=== PATIENT | male | born 1975 | race Caucasian/White ===

== ENCOUNTER → 2017-06-10 | Outpatient (CLI) | payer OTHER ==
[~2017-06-10] VITALS: Ht 167.6 cm; Wt 87.5 kg
[~2017-06-10] MED LIST: ALLOPURINOL 30300 M2 PO; COLCHICINE0.6 MG PO; FISH OIL 1,001000 M2 PO; LAMICTAL100 MG PO; MOBIC7.5 MG PO; MULTIVITAMINS PO; NORCO 10-325 T1 EACH PO; PRINIVIL40 MG PO; TRAZODONE HCL100 MG PO; VENTOLIN HFA 1818 GM INH; VITAMIN D1000 UNI1 PO
--- NOTE | ~2017-06-10 | HPC ---
[facility] [address] [place] [address] PAIN MANAGEMENT CONSULTATION Name: ALICIA LUNA Room #: REG Laury Padilla#: [id number] Admission: 06/10/17 Attend Phys: Fahad Araujo DO Discharge: Date of : 79 Report #: [id number] THIS REPORT FOR: //name// CC: Ever Araujo The patient is a very pleasant 42-year-old gentleman, seen in consultation at the request of Dr. Martínez for assistance with management of chronic pain concerns. 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 He has suffered with chronic pain in his knees and ankles secondary to hyperuricemia for many years. He has been relatively stable using allopurinol daily, colchicine, Mobic, and occasional hydrocodone for "flares." Last significant flare was his left knee about 4-6 months ago. He has minor flares about once a month. He notes pain is primarily knees and ankles, they ache after exercising, walking, sitting, and even standing does exacerbate pain to some small degree. He notes pain is better with ice, medication, and elevation. Describes continuous, steady, constant, rhythmic pain with flare ups, shooting, aching, pounding, sharp, stabbing pain periodically. Rates pain anywhere from 1-10 on a VAS. REVIEW OF SYSTEMS: A complete review of systems was attached to chart and was gone over with the patient. He is , he does not smoke. He has had some issues with ethanol habituation. He is currently sober and he attends AA meetings regularly. History of asthma for which he uses p.r.n. albuterol, hypertension, treated with lisinopril; bipolar disorder, stable on Lamictal. Chronic hyperuricemia/gout. He has had nasal septal reconstruction 1991, right carpal tunnel release in November 2016. He is planning another surgery probably in August, hand surgery, I believe right again. The patient has continued to work despite pain, missed perhaps 1 or 2 days with acute exacerbation. Pain impact score is essentially zero. PHYSICAL EXAMINATION: Reveals a pleasant 66-inch, 193-pound gentleman, BMI is modestly elevated at 31.2 kg/m2. Blood pressure is 136/89, pulse 82, and respirations are 16. Cranial nerves 2-12 are grossly intact. Pupils are equal, reactive to light and accommodation. Extraocular muscles are intact. There is no nystagmus or lateral gaze deviation. Thyroid is unremarkable. Cervical range of motion is full. Upper extremity strength is preserved. Heart is regular rhythmical without murmur. Lungs are clear to auscultation. Abdomen shows a modestly endomorphic build. Rises from chair easily. Gait is tandem. Lumbar flexion is good to about 80 degrees. Inspection of the knees shows no ballotable edema. Anterior, posterior cruciate as well as the medial and lateral collateral ligaments are intact. Full range of motion in the ankle. There is no swelling at this time. [address] [address] PAIN MANAGEMENT CONSULTATION Name: PRASHANTMADHAVALICIA HELTON Room #: SIMÓN Padilla#: [id number] Admission: 06/10/17 Attend Phys: Fahad Araujo DO Discharge: Date of : 79 Report #: [id number] I did review records from Dr. Martínez's office. He has been using hydrocodone 40-45 tablets appropriately with prescriptions generated every "couple of months." Today, I did discuss opiate consent to treat contract with the patient today. I will be happy to manage opiates on an as needed basis. The patient understands need to use opiate analgesics on a nondaily basis. Only with acute flares. I talked about responsibility to keep medications safeguarded, use 1 prescribing physician and one pharmacy. The patient did mention today that he is having surgery in August with Dr. Jacobs who usually will use a short course of hydrocodone postoperatively. I suggested that if he has had a recent fill of hydrocodone from me to use that, if, however, he is out of hydrocodone from me, I will enable him to get a prescription from Dr. Jacobs; however, I would like to see him when he gets near the end of today's prescription (for 45 tablets). We will try and get a better handle on his average usage. Again, as long as he uses on a nondaily basis, I beleive that is is appropriate to have available a small amount of pain tablets for acute exacerbations of hyperuricemia/gout exacerbation. Lastly, we will to random buccal drug swabs, which should be positive for hydrocodone as the sole opiate. Discharged in good and stable condition today, did generate a prescription for hydrocodone 10/325, dispense 45 tablets with directions to use 1 q.4 hours as needed for exacerbation of significant pain. Otherwise, we will see the patient simply on as needed basis. Again, consent to opiate treatment contract was signed by both the patient and myself. Thank you for allowing me to participate in the patient's care. I will keep you abreast of his progress. <ELECTRONICALLY SIGNED> By: Fahad Araujo DO 06/13/17 0755 [id number] Fahad Araujo DO /nt
[2017-06-10 08:28] VITALS: BP 136/89
== END ==
LOC: PAIN 08:16
DX: M25.561 Pain in right knee (principal); M25.562 Pain in left knee; G89.29 Other chronic pain

== ENCOUNTER → 2017-08-29 | Outpatient (CLI) | payer OTHER ==
[~2017-08-29] VITALS: Ht 167.6 cm; Wt 87.1 kg
[~2017-08-29] MED LIST changes: +ANTABUSE250 M1 PO; +FLEXERIL PO; +NALTREXONE HCL50 MG PO
--- NOTE | ~2017-08-29 | HPC ---
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 He has struggled with his gout for years. He takes allopurinol daily, colchicine and Mobic when he has his gouty flares. He takes hydrocodone for rare flares. I saw him on 06/10/2017 and prescribed hydrocodone 10/325, dispensed 45 tablets to be used for acute exacerbation of symptoms. He returns to pain clinic today, 45 tablets lasted 11 weeks. Presents to pain clinic today for medication refill. Notes pain in bilateral feet and ankles has been present for multiple years, fairly nominal at present 0.5. He did have several flares in the preceding 11 weeks. PHYSICAL EXAMINATION: Shows 42-year-old gentleman. BMI is modestly elevated at 31 kilograms per meter squared. Blood pressure 128/83, pulse 96, respirations 14. Alert and oriented to person, place and time, judged to be a reasonable historian. Rises from chair easily. Gait is tandem. Long discussion with the patient today about therapeutic options. He has admitted that he has some issues with alcohol abuse and has starting counseling. He sees Dr. Yash Muro. He has been started on disulfiram 250 mg daily and naltrexone 50 mg daily. The patient notes that when he started the naltrexone he feels that the hydrocodone when he had his last gouty flare did not work quite as well. We discussed reasons for using disulfiram and naltrexone. Naltrexone may help some with alcohol "craving." The Antabuse is simply there as a "threat" knowing that if the patient drinks alcohol he will have a significant physical symptoms of nausea, vomiting. Nonetheless, I suggested that if he does have a gouty flare, he may consider holding the naltrexone for 2 or 3 days. Its half life is about 14 hours, so in 24 hours about 2/3 of the drug should be gone. He may have better efficacy on days 2 and 3, typically his gouty flares only last significantly 2 or 3 days. As a trail off, I suggest he go back to the naltrexone. I did point out that multiple studies have suggested that low dose naltrexone may actually have some analgesic ability, which may help with his residual gout pain. ASSESSMENT: History of gout, chronic pain syndrome requiring high risk complex [address] [address] PAIN MANAGEMENT CONSULTATION Name: FRANCISCO JAVIERANTONIETACBALEXX SalazarALICIAEDDIE THORNTON Room #: REG CLLaury Padilla#: [id number] Admission: 08/29/17 Attend Phys: Fahad Araujo DO Discharge: Date of : 79 Report #: [id number] medication management. RECOMMENDATIONS: The patient was seen for a little bit longer visit today, approximately 25 minutes spent in counseling the patient, reviewing therapeutic issues and significant interval history including Antabuse and naltrexone use. Discharged in good and stable condition. I have again renewed hydrocodone 10/ up to 45 tablets. Follow up in anywhere from 8-12 weeks. We will get a buccal swab at that time. It should be positive for hydrocodone as the sole opiate, there should be no other central acting agents. Discharged in good and stable condition. By: [id number] Fahad Araujo, /nt
[2017-08-29 13:20] VITALS: BP 128/83
== END ==
LOC: PAIN 06:57
DX: G89.4 Chronic pain syndrome (principal); M25.571 Pain in right ankle and joints of right foot; Z79.899 Other long term (current) drug therapy; Z87.39 Personal history of other diseases of the musculoskeletal system and connective tissue

== ENCOUNTER → 2017-12-09 | Outpatient (CLI) | payer OTHER ==
[~2017-12-09] VITALS: Ht 167.6 cm; Wt 85.5 kg
[~2017-12-09] MED LIST changes: +NORCO 10-325 T1 EAC1 PO
--- NOTE | ~2017-12-09 | HPC ---
[facility] [place] [address] PAIN MANAGEMENT CONSULTATION Name: ALICIA LUNA Room #: REG CL M.R.#: [id number] Admission: 12/09/17 Attend Phys: Fahad Araujo DO Discharge: Date of : 79 Report #: [id number] THIS REPORT FOR: //name// CC: Ever Araujo DATE OF SERVICE: 12/09/2017 The patient is a pleasant 42-year-old gentleman being treated for chronic pain syndrome, hyperuricemia (gout) requiring complex medication management. Last seen in pain clinic on 08/29/2017. We continued the patient on hydrocodone 10/325 one tablet q.4-6h. as needed for acute bouts of pain, dispense 45 tablets. This has lasted him 3+ months. Returns to pain clinic today. He is doing well. He follows with Dr. Yash Muro. He is on disulfiram and naltrexone for history of opiate habituation. He has been sober for past year. He is alert and oriented. He is losing a little bit of weight. He is increasing physical activity, started to [employer]. Does note continuing pain in his knees and feet, which are chronic, but this is different than his acute exacerbations of hyperuricemic pain. Today, he notes his pain is 2 on VAS. PHYSICAL EXAMINATION: Shows pleasant 42-year-old gentleman, BMI is 30.4 kilograms per meter squared. Blood pressure is 158/85, pulse 73, respirations 20, room air oxygen saturation 94%. He has not fallen in the last 3 months. Medication list was reconciled. His functional assessment tool score is low 18/70. He does not use tobacco products. He is alert, oriented to person, place, time. He rises easily. Gait is tandem. Again, weight is down. BMI is 30.4 kilograms per meter squared. He had been 31.2 kilograms per meter squared on initial visit. ASSESSMENT: Hyperuricemia, gout, chronic pain syndrome requiring complex medication management. RECOMMENDATIONS: Long discussion with the patient today. He is doing very well with his sobriety. I had suggested he stop naltrexone on the days that he takes hydrocodone. He tried this and noted some nominal increase in efficacy. We talked about the fact he has been on hydrocodone for some time. It has been quite helpful for him. If at some point, this loses efficacy, we will rotate to Percocet 7.5/325 roughly equally analgesic agent. We will not entertain a chronic opiate daily use. The patient discharged in good and stable condition. I gave him [address] [address] PAIN MANAGEMENT CONSULTATION Name: ALICIA LUNA HILLARY Room #: REG QI Kuhn.Betsey.#: [id number] Admission: 12/09/17 Attend Phys: Fahad Araujo DO Discharge: Date of : 79 Report #: [id number] for hydrocodone 10/325, limit 45 tablets, 1 to release today, 1 to release in 6 weeks. I will see him back in 3-6 months. <ELECTRONICALLY SIGNED> By: Fahad Araujo DO 12/15/17 0938 1535 1944 Fahad Araujo DO /nt
[2017-12-09 14:14] VITALS: BP 158/85
== END ==
LOC: PAIN 07:15
DX: G89.29 Other chronic pain (principal); E79.0 Hyperuricemia without signs of inflammatory arthritis and tophaceous disease; Z79.899 Other long term (current) drug therapy

== ENCOUNTER → 2020-08-26 | Outpatient (CLI) | payer OTHER | LOC: LAB 10:13 | PROVIDERS: ATTEND Internal Medicine | DX: Z20.828 Contact with and (suspected) exposure to other viral communicable diseases (principal) ==

== ENCOUNTER → 2020-11-14 | Outpatient (CLI) | payer OTHER ==
[2020-11-14 15:19] LABS: ABSOLUTE NEUTROPHILS 4.2 thou/uL (1.4-8.2); BASOPHILS 0.6 % (0.0-2.0); EOSINOPHILS 1.6 % (0.0-3.0); HEMOGLOBIN 16.8 gm/dL (14.0-18.0); LYMPHOCYTES 27.9 % (24.0-44.0); MCH 30.1 pg (26.0-34.0); MCHC 33.7 g/dL (28.0-37.0); MCV 89.4 fL (80.0-100.0); MONOCYTES 9.1 % (1.0-8.0); PLATELET COUNT 249 thou/uL (150-400); POLYS 60.8 % (36.0-66.0); RBC 5.59 mil/uL (4.50-6.00); RDW 14.6 % (10.5-14.5); WBC 6.9 thou/uL (4.0-11.0)
[2020-11-14 15:22] LABS: URINE BILIRUBIN NEGATIVE (Negative); URINE BLOOD NEGATIVE (Negative); URINE CLARITY CLEAR; URINE COLOR YELLOW; URINE GLUCOSE-RANDOM* NEGATIVE (Negative); URINE KETONES NEGATIVE (Negative); URINE LEUKOCYTES-REFLEX NEGATIVE (Negative); URINE NITRITE-REFLEX NEGATIVE (Negative); URINE PROTEIN (DIPSTICK) NEGATIVE (Negative); URINE UROBILINOGEN 0.2 E.U./dl (0.2-1.0)
[2020-11-14 15:38] LABS: ALBUMIN 4.8 g/dL (3.4-5.0); ANION GAP 5 mmol/L (7-16); BUN 20 mg/dL (7-18); CALCIUM 9.2 mg/dL (8.5-10.1); CHLORIDE 101 mmol/L (98-107); CHOLESTEROL 183 mg/dL (<200); CO2 33 mmol/L (21-32); CREATININE 1.1 mg/dL (0.7-1.3); GLUCOSE 99 mg/dL (74-106); HDL CHOLESTEROL 56 mg/dL (>40); LDL CHOLESTEROL 98 mg/dL (<100); POTASSIUM 4.4 mmol/L (3.5-5.1); SGOT 23 U/L (15-37); SGPT 44 U/L (30-65); SODIUM 139 mmol/L (136-145); TC:HDL 3.3 Ratio (Not establshd); TOTAL BILIRUBIN 0.7 mg/dL (0.2-1.0); TRIGLYCERIDE 145 mg/dL (<150); VLDL 29 mg/dL (<40)
== END ==
LOC: LAB 14:45
PROVIDERS: ATTEND Internal Medicine
DX: I10 Essential (primary) hypertension (principal)

== ENCOUNTER 2020-12-11 09:13 | Emergency (ER) | payer OTHER ==
[~2020-12-11] VITALS: Ht 167.6 cm; Wt 75.8 kg
[~2020-12-11 09:13] MED LIST changes: -MULTIVITAMINS PO; +ONE-DAILY MULT1 EAC1 PO
[2020-12-11 09:34] LABS: ABSOLUTE NEUTROPHILS 3.6 thou/uL (1.4-8.2); BASOPHILS 0.5 % (0.0-2.0); EOSINOPHILS 0.7 % (0.0-3.0); HEMATOCRIT 50.9 % (42.0-52.0); LYMPHOCYTES 27.9 % (24.0-44.0); MCHC 33.4 g/dL (28.0-37.0); MCV 89.8 fL (80.0-100.0); MONOCYTES 7.6 % (1.0-8.0); PLATELET COUNT 231 thou/uL (150-400); POLYS 63.3 % (36.0-66.0); RBC 5.67 mil/uL (4.50-6.00); RDW 14.3 % (10.5-14.5); WBC 5.7 thou/uL (4.0-11.0)
[2020-12-11 09:34] LABS: URINE BILIRUBIN NEGATIVE (Negative); URINE BLOOD NEGATIVE (Negative); URINE CLARITY CLEAR; URINE COLOR YELLOW; URINE GLUCOSE-RANDOM* NEGATIVE (Negative); URINE KETONES NEGATIVE (Negative); URINE LEUKOCYTES-REFLEX NEGATIVE (Negative); URINE NITRITE-REFLEX NEGATIVE (Negative); URINE PROTEIN (DIPSTICK) NEGATIVE (Negative); URINE SPECIFIC GRAVITY 1.015 (1.005-1.035); URINE UROBILINOGEN 0.2 E.U./dl (0.2-1.0)
[2020-12-11] MEDS ORDERED: SEROQUEL200 MG PO (09:39)
[2020-12-11] MEDS ORDERED: CLONAZEPAM 0.50.5 M1 PO (09:39)
[2020-12-11] MEDS ORDERED: QVAR REDIHALE10.6 G1 (09:40)
[2020-12-11 09:42] LABS: CALCIUM 9.1 mg/dL (8.5-10.1); POTASSIUM 4.7 mmol/L (3.5-5.1)
[2020-12-11 11:19] LABS: TOTAL BILIRUBIN 0.6 mg/dL (0.2-1.0)
[2020-12-11 12:32] VITALS: BP 111/68
[2020-12-15] MEDS ORDERED: DEPO-TESTO100 MG/1 M IM (15:26)
[2020-12-15] MEDS ORDERED: SEROQUEL 100 M100 M1 PO (15:27)
[2020-12-15] MEDS ORDERED: CLONAZEPAM 1 MG1 M1 PO (15:27)
[2020-12-15] MEDS ORDERED: HYDROCODON-ACE1 EAC7 PO (15:29)
[2020-12-15] MEDS ORDERED: VITAMIN D350 MCG PO (15:29)
[2020-12-15] MEDS ORDERED: QVAR REDIHALE10.6 G1 INH (15:30)
[2020-12-15] MEDS ORDERED: PROAIR HFA8.5 GM INH (15:31)
[2020-12-15] MEDS ORDERED: VITAMIN D3100 MCG PO (15:51)
== END 2020-12-11 12:33 | disposition home or self-care (01) ==
LOC: ER 09:13
PROVIDERS: Emergency Medicine
DX: R10.9 Unspecified abdominal pain (principal); Z79.899 Other long term (current) drug therapy; Z88.8 Allergy status to other drugs, medicaments and biological substances

== ENCOUNTER 2020-12-14 16:13 | Emergency (ER) | payer OTHER ==
[~2020-12-14] VITALS: Ht 170.2 cm; Wt 75.8 kg
[~2020-12-14 16:13] MED LIST changes: +CLONAZEPAM 0.50.5 M1 PO; +QVAR REDIHALE10.6 G1; +SEROQUEL200 MG PO
[2020-12-14 16:31] LABS: URINE BILIRUBIN NEGATIVE (Negative); URINE BLOOD NEGATIVE (Negative); URINE CLARITY CLEAR; URINE COLOR YELLOW; URINE GLUCOSE-RANDOM* NEGATIVE (Negative); URINE KETONES NEGATIVE (Negative); URINE LEUKOCYTES-REFLEX NEGATIVE (Negative); URINE NITRITE-REFLEX NEGATIVE (Negative); URINE PROTEIN (DIPSTICK) NEGATIVE (Negative); URINE SPECIFIC GRAVITY 1.015 (1.005-1.035); URINE UROBILINOGEN 0.2 E.U./dl (0.2-1.0)
[2020-12-14 17:31] LABS: HEMATOCRIT 48.5 % (42.0-52.0); MCH 29.7 pg (26.0-34.0); RBC 5.39 mil/uL (4.50-6.00); RDW 14.2 % (10.5-14.5); WBC 7.5 thou/uL (4.0-11.0)
[2020-12-14 17:36] LABS: CREATININE 1.2 mg/dL (0.7-1.3)
[2020-12-14] MEDS ORDERED: LEVSIN0.125 MG PO (19:41)
[2020-12-14 19:46] VITALS: BP 119/65
[2020-12-15] MEDS ORDERED: DEPO-TESTO100 MG/1 M IM (15:26)
[2020-12-15] MEDS ORDERED: CLONAZEPAM 1 MG1 M1 PO (15:27)
[2020-12-15] MEDS ORDERED: SEROQUEL 100 M100 M1 PO (15:27)
[2020-12-15] MEDS ORDERED: VITAMIN D350 MCG PO (15:29)
[2020-12-15] MEDS ORDERED: HYDROCODON-ACE1 EAC7 PO (15:29)
[2020-12-15] MEDS ORDERED: QVAR REDIHALE10.6 G1 INH (15:30)
[2020-12-15] MEDS ORDERED: PROAIR HFA8.5 GM INH (15:31)
[2020-12-15] MEDS ORDERED: VITAMIN D3100 MCG PO (15:51)
== END 2020-12-14 19:49 | disposition home or self-care (01) ==
LOC: ER 16:13
PROVIDERS: Nurse Practitioner Family
DX: K59.00 Constipation, unspecified (principal); K43.9 Ventral hernia without obstruction or gangrene; Z79.899 Other long term (current) drug therapy; Z88.8 Allergy status to other drugs, medicaments and biological substances

== ENCOUNTER → 2020-12-16 | Outpatient (CLI) | payer OTHER ==
[~2020-12-16] MED LIST changes: +CLONAZEPAM 1 MG1 M1 PO; +DEPO-TESTO100 MG/1 M IM; +HYDROCODON-ACE1 EAC7 PO; +LEVSIN0.125 MG PO; +PROAIR HFA8.5 GM INH; +QVAR REDIHALE10.6 G1 INH; +SEROQUEL 100 M100 M1 PO; +VITAMIN D3100 MCG PO; +VITAMIN D350 MCG PO
== END ==
LOC: LAB 10:55
PROVIDERS: ATTEND Specialist
DX: Z01.812 Encounter for preprocedural laboratory examination (principal); Z20.822 Contact with and (suspected) exposure to COVID-19

== ENCOUNTER → 2020-12-19 | Outpatient (CLI) | payer OTHER ==
[~2020-12-19] VITALS: Ht 167.6 cm; Wt 75.8 kg
--- NOTE | 2020-12-19 21:19 | P ---
[facility] [place] [address] PROCEDURE REPORT Name: TUESDAYALICIA LUNA [facility] #: SIMÓN Padilla#: [id number] Admission: 12/19/20 Attend Phys: Santhosh Denton Discharge: Date of : 79 Report #: [id number] THIS REPORT FOR: cc: Robi Harris MD, Stany A. MD McElhinney, Christian C. MD ~ DATE OF SERVICE: 12/19/2020 PROCEDURE PERFORMED: Colonoscopy. HISTORY OF PRESENT ILLNESS: The patient is a 45-year-old male with recent history of abdominal pain, who underwent a CT scan of his abdomen and pelvis on 12/11/2020, which showed a possible rectal mass described as 2.6 cm eccentric soft tissue mass along the right side of the superior rectum, worrisome for possible malignancy. Recommend colonoscopy. The patient then had a right lower abdominal bulge several days later, was rescanned through the Emergency Room on 12/14/2020 this time with contrast that did not show rectal mass and no other abnormalities were noted including herniation. He continues to have pain. He has never had a colonoscopy before. He does report small amount of bright red blood per rectum at times. No family history of colon cancer or inflammatory bowel disease. His weight has been stable. Plan is for colonoscopy. DESCRIPTION OF PROCEDURE: The risks and benefits of the procedure were explained to the patient, those risks including but not limited to bleeding, perforation and the risk of sedation. He understood these risks and gave informed consent. Sedation was given using propofol per anesthesia. Next, a digital rectal exam was initially performed, which was normal. Next, using a standard Olympus colonoscope, the scope was placed in the patient's anus and advanced under direct vision to the cecum. The overall prep was good in most areas. Several areas washings and aspirations were performed. Again, I was able to view most areas quite well. The cecum and ileocecal valve were normal in appearance. Terminal ileum was intubated and normal in appearance. The ascending, transverse, descending, and sigmoid colon were normal. Close examination of the rectum showed no evidence of mass lesions, no polyps, no abnormalities were noted. On retroflexion, small nonbleeding internal hemorrhoids were noted. The scope was then withdrawn and the procedure terminated. The patient tolerated the procedure well. IMPRESSION: 1. Small internal hemorrhoids. 2. Otherwise, normal colonoscopy. RECOMMENDATIONS: Etiology of abdominal pain is unclear. I reviewed the most recent CT scan with Dr. Avitia. No evidence of herniation is noted on CT or other abnormalities. We will start Levsin on a p.r.n. basis. The patient does have a [address] [address] PROCEDURE REPORT Name: TUESDAYALICIA LUNA [facility] #: REG QI Padilla#: [id number] Admission: 12/19/20 Attend Phys: Santhosh Denton Discharge: Date of : 79 Report #: [id number] history of constipation. I would recommend MiraLax on a daily basis as well. We would repeat colonoscopy in 5 years due to a few areas in which the prep was only fair. Thank you for allowing me to participate in his care. <ELECTRONICALLY SIGNED> By: Santhosh Garrett MD 12/19/20 2119 1054 1733 Santhosh Garrett MD /nt
== END | disposition home or self-care (01) ==
LOC: GI
PROVIDERS: ATTEND Specialist
DX: R10.9 Unspecified abdominal pain (principal); K62.5 Hemorrhage of anus and rectum; K64.8 Other hemorrhoids; I10 Essential (primary) hypertension; J45.909 Unspecified asthma, uncomplicated; F31.9 Bipolar disorder, unspecified; Z98.890 Other specified postprocedural states; Z79.899 Other long term (current) drug therapy; Z87.442 Personal history of urinary calculi; Z88.8 Allergy status to other drugs, medicaments and biological substances
CPT/HCPCS: 62110; 62900

== ENCOUNTER → 2021-01-09 | Outpatient (CLI) | payer OTHER | LOC: MRI 09:57 | PROVIDERS: ATTEND Surgery | DX: M54.9 Dorsalgia, unspecified (principal) ==

== ENCOUNTER → 2021-02-17 | Outpatient (CLI) | payer OTHER ==
[2021-02-17 15:42] LABS: ABSOLUTE NEUTROPHILS 3.4 thou/uL (1.4-8.2); BASOPHILS 0.6 % (0.0-2.0); EOSINOPHILS 1.2 % (0.0-3.0); HEMATOCRIT 47.6 % (42.0-52.0); HEMOGLOBIN 16.1 gm/dL (14.0-18.0); LYMPHOCYTES 28.9 % (24.0-44.0); MCHC 33.8 g/dL (28.0-37.0); MCV 91.9 fL (80.0-100.0); MONOCYTES 9.7 % (1.0-8.0); PLATELET COUNT 220 thou/uL (150-400); POLYS 59.6 % (36.0-66.0); RBC 5.18 mil/uL (4.50-6.00); RDW 14.4 % (10.5-14.5); WBC 5.6 thou/uL (4.0-11.0)
[2021-02-17 16:19] LABS: ALBUMIN 4.7 g/dL (3.4-5.0); CALCIUM 9.5 mg/dL (8.5-10.1); CREATININE 1.2 mg/dL (0.7-1.3); DIRECT BILIRUBIN 0.2 mg/dL (<0.1-0.2); POTASSIUM 4.4 mmol/L (3.5-5.1); TOTAL BILIRUBIN 0.8 mg/dL (0.2-1.0); TOTAL PROTEIN 7.7 g/dL (6.4-8.2)
[2021-02-18 04:06] LABS: PSA 0.8 ng/mL (0.0-4.0)
[2021-02-18 05:07] LABS: TESTOSTERONE* 309 ng/dL (264-916)
== END ==
LOC: LAB 15:08
PROVIDERS: ATTEND Urology
DX: Z12.5 Encounter for screening for malignant neoplasm of prostate (principal); N20.0 Calculus of kidney; E03.9 Hypothyroidism, unspecified

== ENCOUNTER → 2021-04-24 | Outpatient (CLI) | payer OTHER ==
[2021-04-24 12:47] LABS: ABSOLUTE NEUTROPHILS 7.9 thou/uL (1.4-8.2); BASOPHILS 0.7 % (0.0-2.0); EOSINOPHILS 1.1 % (0.0-3.0); HEMATOCRIT 48.9 % (42.0-52.0); HEMOGLOBIN 16.6 gm/dL (14.0-18.0); LYMPHOCYTES 17.4 % (24.0-44.0); MCV 94.2 fL (80.0-100.0); PLATELET COUNT 220 thou/uL (150-400); POLYS 74.8 % (36.0-66.0); RDW 13.1 % (10.5-14.5); WBC 10.6 thou/uL (4.0-11.0)
[2021-04-24 13:11] LABS: ALBUMIN 4.6 g/dL (3.4-5.0); DIRECT BILIRUBIN 0.2 mg/dL (<0.1-0.2); TOTAL BILIRUBIN 0.8 mg/dL (0.2-1.0); TOTAL PROTEIN 7.6 g/dL (6.4-8.2)
[2021-04-24 21:06] LABS: PSA 0.7 ng/mL (0.0-4.0)
[2021-04-24 22:07] LABS: TESTOSTERONE* 783 ng/dL (264-916)
== END ==
LOC: LAB 12:21
PROVIDERS: ATTEND Urology
DX: E29.1 Testicular hypofunction (principal); N20.0 Calculus of kidney

== ENCOUNTER → 2021-07-13 | Outpatient (CLI) | payer OTHER | LOC: MRI 09:48 | PROVIDERS: ATTEND Physical Medicine & Rehabilitation Sports Medicine | DX: M47.26 Other spondylosis with radiculopathy, lumbar region (principal); M48.061 Spinal stenosis, lumbar region without neurogenic claudication ==

== ENCOUNTER → 2021-10-29 | Outpatient (CLI) | payer OTHER | LOC: RAD 14:08 | PROVIDERS: ATTEND Urology | DX: N20.0 Calculus of kidney (principal); I87.8 Other specified disorders of veins; M51.37 Other intervertebral disc degeneration, lumbosacral region ==

== ENCOUNTER → 2021-11-27 | Outpatient (CLI) | payer OTHER ==
[2021-11-27 15:20] LABS: HEMATOCRIT 51.5 % (42.0-52.0); HEMOGLOBIN 17.5 gm/dL (14.0-18.0); MCH 31.4 pg (26.0-34.0); MCHC 34.1 g/dL (28.0-37.0); MCV 92.2 fL (80.0-100.0); RBC 5.59 mil/uL (4.50-6.00); RDW 12.9 % (10.5-14.5); WBC 6.5 thou/uL (4.0-11.0)
[2021-11-27 15:41] LABS: ALBUMIN 4.6 g/dL (3.4-5.0); CALCIUM 9.3 mg/dL (8.5-10.1); DIRECT BILIRUBIN 0.1 mg/dL (<0.1-0.2); POTASSIUM 4.3 mmol/L (3.5-5.1); TOTAL BILIRUBIN 0.5 mg/dL (0.2-1.0); TOTAL PROTEIN 7.8 g/dL (6.4-8.2)
[2021-11-28 05:07] LABS: PSA 0.7 ng/mL (0.0-4.0); TESTOSTERONE* 636 ng/dL (264-916)
[2021-11-30 13:07] LABS: FREE TESTOSTERONE 13.6 pg/mL (6.8-21.5)
== END ==
LOC: LAB 14:31
PROVIDERS: ATTEND Urology
DX: E79.1 Lesch-Nyhan syndrome (principal)